=== PATIENT | female | born 2000 | race Caucasian/White ===

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

== ENCOUNTER 2019-11-30 20:15 | Emergency (ER) | payer OTHER ==
[~2019-11-30] VITALS: Ht 154.9 cm; Wt 88.5 kg
[2019-11-30 20:25] VITALS: BP_SYST 127
--- NOTE | 2019-11-30 20:31 | NUR ---
Patient to ER bed 4 to gown for evaluation. Side rails up. Report given to ROBBIE MCKEON.
--- NOTE | 2019-11-30 20:50 | NUR ---
Awake, alert. States she was having an anxiety attack today for about 20 minutes and had shortness of breath. her grandmother called 911.
--- NOTE | 2019-11-30 23:02 | NUR ---
ER at bedside examining patient.
[2019-11-30 23:41] LABS: BASOPHILS # (AUTO) 0.1 K/uL (0.0-0.2); BASOPHILS % (AUTO) 0.7 % (0.0-2.0); EOSINOPHILS # (AUTO) 0.1 K/uL (0.0-0.4); EOSINOPHILS % (AUTO) 0.5 % (0.0-4.0); HEMATOCRIT 36.5 % (36-48); HEMOGLOBIN 11.8 g/dL (12.0-16.0); LYMPHOCYTES # (AUTO) 3.7 K/uL (1.0-5.5); LYMPHOCYTES % (AUTO) 22.3 % (20.5-51.5); MEAN CORPUSCULAR HEMOGLOBIN 26 pg (27-31); MEAN CORPUSCULAR HGB CONC 32 % (32-36); MEAN CORPUSCULAR VOLUME 80 fL (79.0-98.0); MONOCYTES # (AUTO) 0.9 K/uL (0.0-1.0); MONOCYTES % (AUTO) 5.4 % (1.7-9.3); NEUTROPHILS # (AUTO) 11.7 K/uL (1.8-7.7); NEUTROPHILS % (AUTO) 71.1 % (40.0-70.0); PLATELET COUNT (AUTO) 351 K/uL (130-430); RED BLOOD CELL COUNT(AUTO) 4.57 MIL/uL (4.2-6.2); RED CELL DISTRIBUTION WIDTH 14.9 % (9.0-15.0); WHITE BLOOD COUNT (AUTO) 16.5 K/uL (4.5-11.0)
[2019-11-30 23:53] LABS: ANION GAP 7 (5-15); CALCIUM 8.7 mg/dL (8.4-11.0); CHLORIDE 105 mmol/L (98-107); CREATININE 0.57 mg/dL (0.55-1.30); GLUCOSE 101 mg/dL (70-99); POTASSIUM 3.8 mmol/L (3.5-5.1); SODIUM SERUM 139 mmol/L (136-145); UREA NITROGEN, BLOOD 9 mg/dL (8-21)
[2019-11-30 23:56] LABS: GFR AFRICAN AMERICAN 174 mL/min (>90)
[2019-12-01 00:08] LABS: ALANINE AMINOTRANSFERASE 21 U/L (12-78); ALBUMIN 3.5 g/dL (3.4-4.8); ASPARTATE AMINOTRANSFERASE 16 U/L (10-37); THYROID STIMULATING HORMONE 3.46 uIu/mL (0.36-3.74); TOTAL BILIRUBIN 0.6 mg/dL (0.0-1.0)
[2019-12-01] MEDS ORDERED: LORazepam 1 MG TABLET PO ONE (00:30)
--- NOTE | 2019-12-01 01:00 | NUR ---
RESTING QUIETLY. NO DISTRESS NOTED. FATHER AT BEDSIDE.
[2019-12-01] MEDS ORDERED: LORazepam 1 MG TABLET ONE (02:52)
[2019-12-01 02:57] VITALS: BP_SYST 127
--- NOTE | 2019-12-01 02:57 | NUR ---
Patient given written and verbal discharge instructions and verbalizes understanding. ER DR RONNIE MIKE discussed with patient the results and treatment provided. Patient in stable condition. ID arm band removed. Patient educated on pain management and to follow up with PMD. Pain Scale . Opportunity for questions provided and answered. Medication side effect fact sheet provided.
== END 2019-12-01 02:57 | disposition home or self-care (01) ==
LOC: SED 20:15
DX: R07.89 Other chest pain (principal); R06.02 Shortness of breath; F41.9 Anxiety disorder, unspecified
CPT/HCPCS: 36415; 71045; 80053; 84443-TC; 84484; 85025; 93005; 99285